=== PATIENT | female | born 1995 | race African-American/Black ===

== ENCOUNTER 2017-02-28 18:03 | Emergency (ER) | payer SELFPAY ==
[~2017-02-28] VITALS: Ht 154.9 cm; Wt 61.5 kg
[~2017-02-28 18:03] MED LIST: LO LTAB PO
[2017-02-28 18:04] VITALS: BP 125/81; PULSE 94; RESP 18; TEMP 99.6; O2SAT 98
[2017-02-28] MEDS ORDERED: FLUT1SPR5 EACH NARE (18:35)
[2017-02-28] MEDS ORDERED: ERYTOIN10 RIGHT EYE (18:35)
--- NOTE | 2017-02-28 18:37 | PD ---
HPI Chief Complaint: Eye Problems/Injury Time Seen by Provider: 18:19 Travel History International Travel<30 days: No Contact w/Intl Traveler<30days: No Traveled to known affect area: No History of Present Illness HPI 21-year-old female here with right eye redness, nasal congestion, sore throat 1 week. She denies fever or chills. No visual changes. No eye pain. Symptoms severity is mild. No aggravating or alleviating factors. PFSH Past Medical History Medical History: Denies Significant Hx Developmental Delay: No Diminished Hearing: No Gastrointestinal Disorders: Yes (REFLUX WHEN SHE WAS YOUNGER) GERD: Yes Immunizations Current: Yes ?: Not LMP: 02/21/2017 : 1 Para: 1 Miscarriage: 0 : 0 Past Surgical History Section: Yes (1) Social History Alcohol Use: No Tobacco Use: No Substance Use: No Allergies-Medications (Allergen,Severity, Reaction): Coded Allergies: Sulfa (Sulfonamide Antibiotics) (Unverified Allergy, Severe, Hives, ) Reported Meds & Prescriptions Reported Meds & Active Scripts Active Lo Loestrin Fe 02/27 (Norethindrone-Ethinyl Estradiol-Fe) 1-10 Mg-Mcg Tab 1 Tab PO DAILY Review of Systems Except as stated in HPI: all other systems reviewed are Neg General / Constitutional: No: Fever Eyes: Positive: Redness HENT: Positive: Sore Throat, Congestion, No: Headaches Cardiovascular: No: Chest Pain or Discomfort Gastrointestinal: No: Abdominal Pain Genitourinary: No: Dysuria Physical Exam Narrative GENERAL: Well-nourished, well-developed patient. SKIN: Focused skin assessment warm/dry. HEAD: Normocephalic. EYES: Right eye mildly injected. Pupils equal, round, reactive to light. EOMs intact. THROAT: Mild pharyngeal erythema. No tonsillar hypertrophy or exudate. NECK: Supple, trachea midline. No JVD or lymphadenopathy. CARDIOVASCULAR: Regular rate and rhythm RESPIRATORY: Breath sounds equal bilaterally. No accessory muscle use. GASTROINTESTINAL: Abdomen soft, non-tender, nondistended. Data Data Last Documented VS Vital Signs Date Time Temp Pulse Resp B/P (MAP) Pulse Ox O2 Delivery O2 Flow Rate FiO2 02/28/17 18:04 99.6 94 18 125/81 (96) 98 Room Air MDM Medical Decision Making Medical Screen Exam Complete: Yes Emergency Medical Condition: Yes Differential Diagnosis Viral conjunctivitis, bacterial conjunctivitis URI, Narrative Course 21-year-old female here with mild URI-like symptoms and conjunctivitis of the right eye. This is likely viral. Patient will be covered for bacterial conjunctivitis with erythromycin ointment. Diagnosis Primary Impression: Conjunctivitis Qualified Codes: H10.31 - Unspecified acute conjunctivitis, right eye Additional Impression: URI (upper respiratory infection) Qualified Codes: J06.9 - Acute upper respiratory infection, unspecified; B97.89 - Other viral agents as the cause of diseases classified elsewhere Referrals: Primary Care Physician Scripts Fluticasone Nasal [employer] (Flonase Nasal [employer]) 50 Mcg/Act [employer] 50 MCG EACH NARE BID for Allergies, #1 BOTTLE 0 Refills Prov: Tram Reese 02/28/17 Erythromycin Opth Oint (Erythromycin Opth Oint) 5 Mg/Gm Oint 1 APPLIC RIGHT EYE BID for Infection, #1 TUBE 0 Refills Prov: Tram Reese 02/28/17 Disposition: 01 DISCHARGE HOME Condition: Stable Tram Reese Feb 28, 2017 18:37
== END 2017-02-28 19:11 | disposition home or self-care (01) ==
LOC: NEPK 18:03
DX: H10.31 Unspecified acute conjunctivitis, right eye (principal); J06.9 Acute upper respiratory infection, unspecified; K21.9 Gastro-esophageal reflux disease without esophagitis
CPT/HCPCS: 99283

== ENCOUNTER 2017-04-11 18:33 | Emergency (ER) | payer SELFPAY ==
[~2017-04-11] VITALS: Ht 157.5 cm; Wt 72.0 kg
[~2017-04-11 18:33] MED LIST changes: +ERYTOIN10 RIGHT EYE; +FLUT1SPR5 EACH NARE
[2017-04-11 18:35] VITALS: BP 134/81; PULSE 102; RESP 14; TEMP 98.2; O2SAT 98
[2017-04-11] MEDS ORDERED: SODIUM CHLOR 0.9% 1000 ML INJ 1,000 ML IV ONE (20:19)
[2017-04-11 20:20] VITALS: BP 145/82; PULSE 104; RESP 16; O2SAT 100
--- NOTE | 2017-04-11 20:20 | PD ---
HPI Chief Complaint: Headache Time Seen by Provider: 20:12 Travel History International Travel<30 days: No Contact w/Intl Traveler<30days: No Traveled to known affect area: No History of Present Illness HPI This is a 21-year-old female who presents for evaluation of headache as well as nausea, vomiting, diarrhea. She reports over the past year she has had frequent generalized headaches. She reports that she expresses these headaches several times a month. She describes it as a generalized pulsating headache which usually improves with ibuprofen and Tylenol. Her current headache did not improve with these medications. In addition over the past 24 hours she has had nausea, vomiting, diarrhea. She reports 2 episodes of nonbloody emesis as well as multiple episodes of watery stool. She reports that her niece recently had similar symptoms and her niece has improved. She reports associated crampy upper abdominal pain. She denies fevers, chills, dysuria, flank pain, dietary changes, recent travel. Her last menstrual period was March 30. She has no other complaints at this time. [facility] Past Medical History Developmental Delay: No Diminished Hearing: No Gastrointestinal Disorders: Yes (REFLUX WHEN SHE WAS YOUNGER) GERD: Yes Immunizations Current: Yes Tetanus Vaccination: < 5 Years Influenza Vaccination: Yes ?: Not LMP: 03/30/17 : 1 Para: 1 Miscarriage: 0 : 0 Past Surgical History Section: Yes (1) Social History Alcohol Use: No Tobacco Use: No Substance Use: No Allergies-Medications (Allergen,Severity, Reaction): Coded Allergies: Sulfa (Sulfonamide Antibiotics) (Unverified Allergy, Severe, Hives, ) Reported Meds & Prescriptions Reported Meds & Active Scripts Active Keflex (Cephalexin) 500 Mg Cap 500 Mg PO Q12H 7 Days Review of Systems Except as stated in HPI: all other systems reviewed are Neg Physical Exam Narrative GENERAL: Pleasant well developed well-nourished female in no acute distress resting comfortably in hospital bed. SKIN: Warm and dry. HEAD: Atraumatic. Normocephalic. EYES: Pupils equal and round. No scleral icterus. No injection or drainage. ENT: No nasal bleeding or discharge. Mucous membranes pink and moist. NECK: Trachea midline. No JVD. CARDIOVASCULAR: Regular rate and rhythm. No murmur appreciated. RESPIRATORY: No accessory muscle use. Clear to auscultation. Breath sounds equal bilaterally. GASTROINTESTINAL: Abdomen soft, mild left upper quadrant tenderness no guarding. MUSCULOSKELETAL: No obvious deformities. No clubbing. No cyanosis. No edema. NEUROLOGICAL: Awake and alert. No obvious cranial nerve deficits. Motor grossly within normal limits. Normal speech. PSYCHIATRIC: Appropriate mood and affect; insight and judgment normal. Data Data Last Documented VS Vital Signs Date Time Temp Pulse Resp B/P (MAP) Pulse Ox O2 Delivery O2 Flow Rate FiO2 04/11/17 20:20 104 16 145/82 (103) 100 Room Air 04/11/17 18:35 98.2 Orders Orders Complete Blood Count With Diff (04/11/17 20:19) Comprehensive Metabolic Panel (04/11/17 20:19) Lipase (04/11/17 20:19) Urinalysis - C+S If Indicated (04/11/17 20:19) Iv Access Insert/Monitor (04/11/17 20:19) Ed Urine Pregnancytest Poc (04/11/17 20:19) Ketorolac Inj (Toradol Inj) (04/11/17 20:30) Ondansetron Inj (Zofran Inj) (04/11/17 20:30) Diphenhydramine Inj (Benadryl Inj) (04/11/17 20:30) Sodium Chlor 0.9% 1000 Ml Inj (Ns 1000 M (04/11/17 20:19) Pantoprazole Inj (Protonix Inj) (04/11/17 20:30) Al-Mag Hy-Si 40-40-4 Mg/Ml Liq (Mag-Al P (04/11/17 20:30) Lidocaine 2% Viscous (Xylocaine 2% Visco (04/11/17 20:30) Labs Laboratory Tests Test 04/11/17 20:24 04/11/17 21:05 White Blood Count 8.7 TH/MM3 Red Blood Count 4.80 MIL/MM3 Hemoglobin 12.6 GM/DL Hematocrit 37.6 % Mean Corpuscular Volume 78.3 FL Mean Corpuscular Hemoglobin 26.1 PG Mean Corpuscular Hemoglobin Concent 33.4 % Red Cell Distribution Width 17.5 % Platelet Count 241 TH/MM3 Mean Platelet Volume 8.5 FL Neutrophils (%) (Auto) 75.7 % Lymphocytes (%) (Auto) 15.8 % Monocytes (%) (Auto) 7.9 % Eosinophils (%) (Auto) 0.0 % Basophils (%) (Auto) 0.6 % Neutrophils # (Auto) 6.6 TH/MM3 Lymphocytes # (Auto) 1.4 TH/MM3 Monocytes # (Auto) 0.7 TH/MM3 Eosinophils # (Auto) 0.0 TH/MM3 Basophils # (Auto) 0.0 TH/MM3 CBC Comment DIFF FINAL Differential Comment Blood Urea Nitrogen 10 MG/DL Creatinine 0.93 MG/DL Random Glucose 85 MG/DL Total Protein 9.3 GM/DL Albumin 4.3 GM/DL Calcium Level 9.3 MG/DL Alkaline Phosphatase 94 U/L Aspartate Amino Transf (AST/SGOT) 24 U/L Alanine Aminotransferase (ALT/SGPT) 15 U/L Total Bilirubin 0.3 MG/DL Sodium Level 136 MEQ/L Potassium Level 3.5 MEQ/L Chloride Level 106 MEQ/L Carbon Dioxide Level 21.8 MEQ/L Anion Gap 8 MEQ/L Estimat Glomerular Filtration Rate 91 ML/MIN Lipase 110 U/L Urine Color YELLOW Urine Turbidity CLEAR Urine pH 6.0 Urine Specific [place] 1.026 Urine Protein 30 mg/dL Urine Glucose (UA) NEG mg/dL Urine Ketones 80 mg/dL Urine Occult Blood NEG Urine Nitrite NEG Urine Bilirubin NEG Urine Urobilinogen LESS THAN 2.0 MG/DL Urine Leukocyte Esterase LARGE Urine RBC 3 /hpf Urine WBC 7 /hpf Urine Squamous Epithelial Cells 3 /hpf Urine Mucus FEW /lpf Microscopic Urinalysis Comment CULT NOT INDICATED MDM Medical Decision Making Medical Screen Exam Complete: Yes Emergency Medical Condition: Yes Medical Record Reviewed: Yes Differential Diagnosis Gastroenteritis, gastritis, colitis, pyelonephritis, dehydration, electrolyte abnormality, migraine, tension headache, cluster headache, pseudotumor cerebri, hypertensive emergency, subarachnoid hemorrhage Narrative Course The patient will be given IV fluids, Benadryl, Zofran, Toradol, Protonix, GI cocktail. Lab work, urinalysis have been ordered. Upon reexamination all of her symptoms have resolved. Her lab work is all notable for a large amount of leukocytes in her urine as well as 80 ketones, 30 protein and therefore the patient be discharged with Keflex for pyuria. Diagnosis Primary Impression: Pyuria Additional Impression: Headache Additional Instructions: Medications prescribed. Slowly advance diet as tolerated. Return for any emergent medical conditions. Med/Other Pt SpecificInfo: Prescription(s) given Scripts Cephalexin (Keflex) 500 Mg Cap 500 MG PO Q12H for Infection for 7 Days, #14 CAP 0 Refills Prov: Demetris Tesfaye MD 04/11/17 Disposition: 01 DISCHARGE HOME Condition: Stable Vin Chandler Apr 11, 2017 20:20
[2017-04-11] MEDS ORDERED: LIDOCAINE VISCOUS 2% SOLN 15 ML UDC PO ONE (20:30)
[2017-04-11] MEDS ORDERED: ONDANSETRON HCL 4 MG/2 ML VIAL IVP ONE (20:30)
[2017-04-11] MEDS ORDERED: diphenhydrAMINE HCL 50 MG/ML VIAL IVP ONE (20:30)
[2017-04-11] MEDS ORDERED: KETOROLAC TROMETHAMINE 30 MG/ML (IVP) VIAL IVP ONE (20:30)
[2017-04-11] MEDS ORDERED: PANTOPRAZOLE SODIUM 40 MG VIAL IVP ONE (20:30)
[2017-04-11] MEDS ORDERED: ALUMINUM/MAGNESIUM/SIMETH 30 ML CUP PO ONE (20:30)
[2017-04-11 20:42] LABS: AUTOMATED NEUTROPHIL # 6.6 TH/MM3 (1.8-7.7); BASOPHIL % 0.6 % (0.0-2.0); HEMATOCRIT 37.6 % (35.0-46.0); HEMOGLOBIN 12.6 GM/DL (11.6-15.3); LYMPH % 15.8 % (9.0-44.0); LYMPHOCYTE # 1.4 TH/MM3 (1.0-4.8); MEAN CELL VOLUME 78.3 FL (80.0-100.0); MEAN CORPUSCULAR HEMOGLOBIN 26.1 PG (27.0-34.0); MEAN CORPUSCULAR HGB CONC 33.4 % (32.0-36.0); MEAN PLATELET VOLUME 8.5 FL (7.0-11.0); MONO % 7.9 % (0.0-8.0); MONOCYTE # 0.7 TH/MM3 (0-0.9); NEUT % 75.7 % (16.0-70.0); PLATELET COUNT 241 TH/MM3 (150-450); RED CELL DISTRIBUTION WIDTH 17.5 % (11.6-17.2); WHITE BLOOD COUNT 8.7 TH/MM3 (4.0-11.0)
[2017-04-11 21:08] LABS: ALT (GPT) 15 U/L (10-53)
[2017-04-11 21:10] LABS: ALKALINE PHOSPHATASE 94 U/L (45-117); TOTAL BILIRUBIN ADULT 0.3 MG/DL (0.2-1.0); TOTAL PROTEIN 9.3 GM/DL (6.4-8.2)
[2017-04-11 21:14] LABS: ALBUMIN 4.3 GM/DL (3.4-5.0); AST (GOT) 24 U/L (15-37); BICARBONATE 21.8 MEQ/L (21.0-32.0); BLOOD UREA NITROGEN 10 MG/DL (7-18); CALCIUM 9.3 MG/DL (8.5-10.1); CHLORIDE 106 MEQ/L (98-107); CREATININE 0.93 MG/DL (0.50-1.00); GLOMERULAR FILTRATION RATE 91 ML/MIN (>89); GLUCOSE,RANDOM 85 MG/DL (74-106); SODIUM (NA) 136 MEQ/L (136-145)
[2017-04-11 21:22] LABS: BILIRUBIN, URINE NEG (NEG); BLOOD, URINE NEG (NEG); GLUCOSE,URINE NEG (NEG); KETONE, URINE 80 mg/dL (NEG); MUCUS URINE FEW /lpf (OCC); NITRITE,URINE NEG (NEG); SQUAMOUS EPITHELIAL CELL URINE 3 /hpf (0-5); URINE COLOR YELLOW (YELLW/STRAW); URINE LEUKOCYTE ESTERASE LARGE (NEG)
[2017-04-11] MEDS ORDERED: CEPH-460 PO (21:36)
[2017-04-11 21:53] VITALS: BP 118/64
== END 2017-04-11 21:53 | disposition home or self-care (01) ==
LOC: NEPC 18:33
DX: N39.0 Urinary tract infection, site not specified (principal); R51 Headache; R10.10 Upper abdominal pain, unspecified
CPT/HCPCS: 80053; 81001; 83690; 84703; 85025; 96361; 96374; 96375; 99284; C9113; J1200; J1885; J2405; J7030